=== PATIENT | male | born 1940 | race Caucasian/White ===

== ENCOUNTER 2021-02-21 06:47 | Day surgery (SDC) | payer MEDICARE ==
[~2021-02-21] VITALS: Ht 182.9 cm; Wt 75.0 kg
[~2021-02-21 06:47] MED LIST: DIGO125T97 PO; MULT-1141 PO; PANT-47 PO; RIVA20TA PO; VERA240T92 PO
[2021-02-21] MEDS ORDERED: ZAR2.5T PO (07:22)
[2021-02-21] MEDS ORDERED: FUROSEMIDE PO (07:22)
[2021-02-21] MEDS ORDERED: VITAMIN B12 PO (07:22)
[2021-02-21] MEDS ORDERED: VITAMIN D3 PO (07:22)
[2021-02-21] MEDS ORDERED: SENN-93 PO (07:22)
[2021-02-21 07:23] VITALS: BP 167/73
[2021-02-21 08:55] VITALS: BP 165/88
[2021-02-21 11:31] VITALS: BP 154/80
== END 2021-02-21 10:30 | disposition home or self-care (01) ==
LOC: SSTAY O 06:47
PROVIDERS: ATTEND Preventive Medicine Aerospace Medicine
DX: J90 Pleural effusion, not elsewhere classified (principal); I11.0 Hypertensive heart disease with heart failure; I50.9 Heart failure, unspecified; I48.0 Paroxysmal atrial fibrillation; M19.90 Unspecified osteoarthritis, unspecified site; K21.9 Gastro-esophageal reflux disease without esophagitis; J44.9 Chronic obstructive pulmonary disease, unspecified; D50.0 Iron deficiency anemia secondary to blood loss (chronic); Z87.891 Personal history of nicotine dependence; Z87.11 Personal history of peptic ulcer disease; Z72.89 Other problems related to lifestyle; Z88.5 Allergy status to narcotic agent; Z79.899 Other long term (current) drug therapy
CPT/HCPCS: 32555

== ENCOUNTER 2021-08-22 07:07 | Day surgery (SDC) | payer MEDICARE ==
[~2021-08-22] VITALS: Ht 180.3 cm; Wt 80.3 kg
[~2021-08-22 07:07] MED LIST changes: +FUROSEMIDE PO; +SENN-93 PO; +VITAMIN B12 PO; +VITAMIN D3 PO; +ZAR2.5T PO
[2021-08-22] MEDS ORDERED: albumin 25% 100mL bottle x 1 IV PRN (07:35)
[2021-08-22] MEDS ORDERED: LEVA15HF6 (07:44)
[2021-08-22] MEDS ORDERED: POTA-207 PO (07:44)
[2021-08-22] MEDS ORDERED: FURO40TA4 PO (07:44)
[2021-08-22 07:57] VITALS: BP 140/79
[2021-08-22 08:51] VITALS: BP 144/81
[2021-08-22 09:07] VITALS: BP 152/77
[2021-08-22 09:16] VITALS: BP 136/74
[2021-08-22 09:31] VITALS: BP 136/81
== END 2021-08-22 09:40 | disposition home or self-care (01) ==
LOC: SSTAY O 07:07
PROVIDERS: ATTEND Radiology Vascular & Interventional Radiology
DX: J90 Pleural effusion, not elsewhere classified (principal); I48.0 Paroxysmal atrial fibrillation; D50.0 Iron deficiency anemia secondary to blood loss (chronic); I10 Essential (primary) hypertension; M19.90 Unspecified osteoarthritis, unspecified site; K21.9 Gastro-esophageal reflux disease without esophagitis; J44.9 Chronic obstructive pulmonary disease, unspecified; Z98.890 Other specified postprocedural states; Z87.891 Personal history of nicotine dependence; Z72.89 Other problems related to lifestyle; Z88.5 Allergy status to narcotic agent; Z79.01 Long term (current) use of anticoagulants; Z79.899 Other long term (current) drug therapy
CPT/HCPCS: 32555; 87070; 88108; 88305; 88341; 88342

== ENCOUNTER 2021-10-06 08:10 | Day surgery (SDC) | payer MEDICARE ==
[~2021-10-06] VITALS: Ht 180.3 cm; Wt 81.0 kg
[~2021-10-06 08:10] MED LIST changes: +FURO40TA4 PO; -FUROSEMIDE PO; +LEVA15HF6; +POTA-207 PO
[2021-10-06 08:31] VITALS: BP 137/80
[2021-10-06] MEDS ORDERED: LIDOcaine 1%/PF 5ML 10 MG/ML VIAL SQ ONE (08:35)
[2021-10-06] MEDS ORDERED: albumin 25% 100mL bottle x 1 IV PRN (08:40)
[2021-10-06 10:15] VITALS: BP 133/67
[2021-10-06 10:20] VITALS: BP 133/67
[2021-10-06 10:31] VITALS: BP 149/98
[2021-10-06 10:46] VITALS: BP 144/84
[2021-10-06 11:01] VITALS: BP 128/72
== END 2021-10-06 11:10 | disposition home or self-care (01) ==
LOC: SSTAY O 08:10
PROVIDERS: ATTEND Radiology Vascular & Interventional Radiology
DX: J90 Pleural effusion, not elsewhere classified (principal); D50.0 Iron deficiency anemia secondary to blood loss (chronic); I48.0 Paroxysmal atrial fibrillation; I10 Essential (primary) hypertension; M19.90 Unspecified osteoarthritis, unspecified site; K21.9 Gastro-esophageal reflux disease without esophagitis; J44.9 Chronic obstructive pulmonary disease, unspecified; Z98.890 Other specified postprocedural states; Z87.891 Personal history of nicotine dependence; Z72.89 Other problems related to lifestyle; Z88.5 Allergy status to narcotic agent; Z79.899 Other long term (current) drug therapy
CPT/HCPCS: 32555; J3490

== ENCOUNTER 2021-10-19 05:58 | Day surgery (SDC) | payer MEDICARE ==
[2021-10-19] VITALS (16 sets, daily range): BP systolic 113–157; BP diastolic 58–89
[~2021-10-19] VITALS: Ht 180.3 cm; Wt 83.4 kg
[2021-10-19] MEDS ORDERED: normal saline 1000ml 1,000 ML IV SCH ×2 (06:20→10:40)
[2021-10-19] MEDS ORDERED: ceFAZolin inj. 2,000 MG in dextrose 5%-water 100 ML IV ONE (06:21)
[2021-10-19] MEDS ORDERED: Vitamin D3 (06:42)
[2021-10-19] MEDS ORDERED: FURO-150 PO (06:42)
[2021-10-19] MEDS ORDERED: ACET-890 PO (06:42)
[2021-10-19] MEDS ORDERED: FURO40TA4 PO (06:42)
[2021-10-19] MEDS ORDERED: fentaNYL/PF 50MCG/1 ML 2ML syringe ONE (07:31)
[2021-10-19] MEDS ORDERED: iohexol 300mg/ml 100ml inj. ONE (07:31)
[2021-10-19] MEDS ORDERED: heparin 1,000 UNITS/NS 500ml 2,000 ML ONE (07:31)
[2021-10-19] MEDS ORDERED: LIDOcaine 1% 30ml preserv. free vial ONE (07:31)
[2021-10-19] MEDS ORDERED: midazolam 1 mg/ML 2ml injection ONE ×3 (07:31→09:45)
[2021-10-19] MEDS ORDERED: iohexol 350 MG/ML 50ML vial IV ONE (07:32)
[2021-10-19] MEDS ORDERED: heparin 1,000unit/ml 10ml vial 10 ML ONE (09:28)
[2021-10-19] MEDS ORDERED: heparin 1,000 UNITS/NS 500ml 500 ML ONE (09:28)
[2021-10-19] MEDS ORDERED: vancomycin/NS 1 GM in NS 250 ML IV ONE (11:00)
--- NOTE | 2021-10-19 14:00 | NUR ---
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
== END 2021-10-19 17:00 | disposition home or self-care (01) ==
LOC: SSTAY O 05:58
PROVIDERS: ATTEND Internal Medicine Cardiovascular Disease
DX: I49.5 Sick sinus syndrome (principal); Z00.6 Encounter for examination for normal comparison and control in clinical research program; I48.20 Chronic atrial fibrillation, unspecified; I11.0 Hypertensive heart disease with heart failure; I50.30 Unspecified diastolic (congestive) heart failure; E78.49 Other hyperlipidemia; I08.1 Rheumatic disorders of both mitral and tricuspid valves; J44.9 Chronic obstructive pulmonary disease, unspecified; I27.20 Pulmonary hypertension, unspecified; F17.210 Nicotine dependence, cigarettes, uncomplicated; Z88.5 Allergy status to narcotic agent; Z79.899 Other long term (current) drug therapy; Z82.49 Family history of ischemic heart disease and other diseases of the circulatory system; Z80.3 Family history of malignant neoplasm of breast; Z81.8 Family history of other mental and behavioral disorders
CPT/HCPCS: 33274; 93005; 99152; 99153; C1760; C1769; C1894; J1644; J2250; J3010; J3370; J3490; J7030; Q9967; 76937; A4620; A6258